=== PATIENT | female | born 1955 | race African-American/Black ===

== ENCOUNTER → 2016-05-09 | Day surgery (SDC) | payer OTHER ==
[~2016-05-09] MED LIST: ALLEGRA ALLERG180 MG PO; ALLER-FEX180 MG PO; ANTIVERT PO; ASPIRIN81 M2 PO; CITALOPRAM HBR40 MG PO; COLACE PO; DITROPAN XL PO; DITROPAN5 MG PO; DOC-Q-LACE100 MG PO; FLEXERIL10 MG PO; GABAPENTIN300 MG PO; HYDROCHLOROTHIA25 MG PO; HYDROCODON-ACE1 EAC7 PO; HYDROXYZINE HCL25 M1 PO; HYDROXYZINE PAM25 M1 PO; KCL PO; LIPITOR20 MG PO; LISINOPRIL PO; MELOXICAM15 MG PO; METFORMIN PO; MOBIC PO; MOTION SICKNESS25 M4 PO; PATIENT'S PHARMACY; POTASSIUM CHLO10 MEQ PO; PROTONIX PO; SUMATRIPTAN SUC50 M1 PO; TRADJENTA5 MG PO; TRAZODONE HCL150 MG PO; VERAPAMIL ER180 M1 PO; VERAPAMIL ER180 MG PO; ZESTRIL40 MG PO
--- NOTE | ~2016-05-09 | OR ---
Unit #: [id number] #: [id number] Patient: PADMINI ROCHE [id number] [address] [address] [id number] O MR#: [id number] NAME: PADMINI ROCHE ROOM: Date of Procedure: 05/09/2016 Admission Date: 05/09/2016 Surgeon: Donald Faust M.D. : 1955 Attending Physician: Donald Faust M.D. Primary Care Physician: Isabell Wong OPERATIVE REPORT INDICATIONS FOR PROCEDURE Esophagogastroduodenoscopy to descending duodenum and colonoscopy to cecum. INDICATIONS FOR PROCEDURE The patient with significant dysphagia, blood in the stool, altered bowel movements, undergoing evaluation with upper endoscopy and colonoscopy. MEDICATIONS Monitored anesthesia. POSTOPERATIVE FINDINGS 1. Small hiatal hernia. Normal stomach and normal duodenum and distal duodenum. 2. Colonoscopy was completed to cecum. No polyps, masses, or colitis. Prep was good. PLAN Symptomatic treatment. Repeat colonoscopy in 10 years. DESCRIPTION OF PROCEDURE The patient was explained of the procedure, risks, and benefits along with the risks and benefits of anesthesia. She was brought to the endoscopy room. Propofol anesthesia was given. Bite block was placed. The scope was passed down the mouth into the esophagus, duodenum, and distal duodenum. Findings as described. Biopsies taken. Gently, the scope was pulled out. She tolerated it well. At this time, she was turned around and repositioned for colonoscopy. Rectal exam was done, which was normal. Colonoscope was lubricated, passed up the rectum, advanced under direct vision all the way to the cecum. Cecum was identified by ileocecal valve and appendiceal orifice. No polyps, masses, or colitis was seen. Mucosa was normal and healthy. I retroflexed in the rectum, small hemorrhoids seen. Scope was gently pulled out. She tolerated it well. No major complications were seen. Dictated by... Ghada Walden/tonia TD: 05/10/2016 00:57 JOB #: [id number] Unit #: [id number] #: [id number] Patient: PADMINI ROCHE OPERATIVE REPORT X Donald Faust MD PROCEDURE OPERATIVE NOTE
== END | disposition home or self-care (01) ==
LOC: COPS 08:58
DX: K44.9 Diaphragmatic hernia without obstruction or gangrene (principal); R13.10 Dysphagia, unspecified; K92.1 Melena; K64.9 Unspecified hemorrhoids; I10 Essential (primary) hypertension; E11.9 Type 2 diabetes mellitus without complications; M19.90 Unspecified osteoarthritis, unspecified site; Z88.0 Allergy status to penicillin; Z88.2 Allergy status to sulfonamides; Z88.8 Allergy status to other drugs, medicaments and biological substances; Z91.040 Latex allergy status; Z79.891 Long term (current) use of opiate analgesic; Z90.710 Acquired absence of both cervix and uterus; Z98.51 Tubal ligation status
CPT/HCPCS: 82947

== ENCOUNTER 2016-09-24 09:24 | Observation (INO) | payer OTHER ==
[~2016-09-24] VITALS: Ht 160 cm; Wt 108.0 kg
--- NOTE | ~2016-09-24 | MR122 ---
[facility] A Service of [facility] RADIOLOGY TEXT RESULTS PATIENT: PADMINI ROCHE LOCATION: [place] [address] : [birth year] UNIT #: [id number] AGE: [address]: Kwesi Bey MD SEX: F ORDER DR: [id number] [facility] [address] [place], [place] [address] [id number] I MR#: [id number] Acc #: [id number] NAME: PADMINI ROCHE : 1955 SEX: F STUDY DATE/TIME: 09/25/2016 18:45 UNIT: [facility] ROOM: [facility] STUDY DESCRIPTION: MR MRA Head Wo Contrast Attending Physician: Kwesi Bey M.D. Ordering Physician: Stephanie Merino A.P.R.N. Primary Care Physician: Isabell Wong MRI CENTER REPORT This report is preliminary unless electronic signature is present. EXAM MRA brain. HISTORY Right arm numbness today. FINDINGS MR angiogram of the brain was performed without contrast demonstrating no major intracranial arterial occlusion or high-grade stenosis. The intracranial internal carotid arteries and intracranial vertebral arteries and the basilar artery are patent, and the anterior cerebral, middle cerebral and posterior cerebral arteries are patent with no focal stenosis identified. origin of the posterior cerebral arteries is incidentally noted. No aneurysm or vascular malformation is identified. IMPRESSION Unremarkable intracranial MR angiogram. No major vessel occlusion or high-grade stenosis. Dictated by... Dirk Scanlon M.D. THIS IS AN ELECTRONICALLY VERIFIED REPORT Dirk Scanlon M.D. at 09/26/2016 10:10 PM DFL/psc TD: 09/26/2016 00:36 JOB #: [id number] MRI CENTER REPORT Page 1 of 1 COPY
--- NOTE | ~2016-09-24 | EKG ---
PATIENT: PADMINI ROCHE UNIT #: [id number] Ventricular Rate: 79 BPM Atrial Rate: 79 BPM P-R Interval: 172 ms QRS Duration: 72 ms Q-T Interval: 354 ms QTC Calculation(Bezet): 405 ms P [place]: 49 degrees Calculated R [place]: 2 degrees Calculated T [place]: 61 degrees Diagnosis Line: Normal sinus rhythm Diagnosis Line: Possible Left atrial enlargement Diagnosis Line: Borderline ECG Diagnosis Line: No previous ECGs available Diagnosis Line: Confirmed by JOHN STROUD MD ([id number]) on 09/24/2016 Diagnosis Line: 7:44:38 PM INTERPRETING MD: MAXIMUS HERNANDEZ
--- NOTE | ~2016-09-24 | MR134 ---
[facility] A Service of [facility] RADIOLOGY TEXT RESULTS PATIENT: PADMINI ROCHE LOCATION: [place] [address] : 55 UNIT #: [id number] AGE: [address]: Kwesi Bey MD SEX: F ORDER DR: [id number] [facility] [address] [facility] [place], [place] [address] [id number] I MR#: [id number] Acc #: [id number] NAME: PADMINI ROCHE : 1955 SEX: F STUDY DATE/TIME: 09/25/2016 18:45 UNIT: [facility] ROOM: [facility] STUDY DESCRIPTION: MR MRA Neck Wo Contrast Attending Physician: Kwesi Bey M.D. Ordering Physician: Stephanie Merino A.P.R.N. Primary Care Physician: Isabell Wong [facility] REPORT This report is preliminary unless electronic signature is present. EXAM MR angiogram neck without contrast HISTORY Right arm numbness today. FINDINGS MR angiogram of the neck was performed without contrast. The origins of the common carotid arteries are not well seen due to motion. The remainder of the common carotid arteries are patent with no definite stenosis identified although motion artifact limits sensitivity in evaluating the proximal common carotid arteries. Approximately 30% stenosis at the origin of the right internal carotid artery, by NASCET criteria. No stenosis is identified in the right internal carotid artery. The external carotid arteries are patent bilaterally and the vertebral arteries are patent with no focal stenosis identified. IMPRESSION 1. Approximately 30% stenosis at the origin of the left internal carotid artery by NASCET criteria. 2. No stenosis is identified in the right internal carotid artery. 3. Both vertebral arteries are patent. 4. Limited evaluation of the origins of the common carotid arteries and vertebral arteries due to motion. Dictated by... Dirk Scanlon M.D. THIS IS AN ELECTRONICALLY VERIFIED REPORT Dirk Scanlon M.D. at 09/26/2016 10:10 PM [facility] A Service [facility] RADIOLOGY TEXT RESULTS PATIENT: PADMINI ROCHE LOCATION: [facility] [id number] : 55 UNIT #: [id number] AGE: [address]: Kwesi Bey MD SEX: F ORDER DR: COLLEEN/audra TD: 09/26/2016 00:34 JOB #: [id number] MRI CENTER REPORT Page 1 of 1 COPY
--- NOTE | ~2016-09-24 | US84 ---
[id number] [facility]. [facility] [address]. [place], [place] [address] [id number] I MR#: [id number] Acc #: [id number] NAME: PADMINI ROCHE : 1955 SEX: F STUDY DATE/TIME: 09/24/2016 17:56 UNIT: C5B ROOM: 552 STUDY DESCRIPTION: US LE Veins Complete Jose Stdy Attending Physician: Kwesi Bey M.D. Ordering Physician: Kwesi Bey M.D. Primary Care Physician: Isabell Wong MEDICAL IMAGING REPORT This report is preliminary unless electronic signature is present EXAM Bilateral lower extremity venous Doppler 09/24/2016 HISTORY Bilateral leg swelling and pain worsening over 1 week with leg discoloration bilaterally. TECHNIQUE Venous ultrasound examination of both lower extremities was performed using grayscale, spectral Doppler and color flow Doppler imaging. FINDINGS The examination is negative. There is no evidence of deep venous thrombus from the groin to the lower calf bilaterally. Visualized greater saphenous veins are also patent. IMPRESSION Normal negative examination. No evidence of lower extremity deep venous thrombosis. Dictated by... Dandre Waggoner M.D. THIS IS AN ELECTRONICALLY VERIFIED REPORT Dandre Waggoner M.D. at 09/25/2016 11:50 AM TEV/to TD: 09/24/2016 18:50 JOB #: [id number] MEDICAL IMAGING REPORT Page 1 of 1 COPY
--- NOTE | ~2016-09-24 | CR72 ---
[facility] A Service of [facility] RADIOLOGY TEXT RESULTS PATIENT: PADMINI ROCHE LOCATION: [place] [address] : [birth year] UNIT #: [id number] AGE: [address]: Kwesi Bey MD SEX: F ORDER DR: [id number] [facility] [address]. [place], [place] [address] [id number] E MR#: [id number] Acc #: [id number] NAME: PADMINI ROCHE : 1955 SEX: F STUDY DATE/TIME: 09/24/2016 10:08 UNIT: [facility] ROOM: STUDY DESCRIPTION: CR Chest Single View Portable Attending Physician: Selvin Means M.D. Ordering Physician: Selvin Means M.D. Primary Care Physician: Isabell Wong MEDICAL IMAGING REPORT This report is preliminary unless electronic signature is present EXAM Portable chest. INDICATIONS Minus chest pain and weakness today. COMPARISON No comparisons. FINDINGS Lungs are well expanded. No acute infiltrate. Heart size normal. IMPRESSION No active disease. Dictated by... Josemanuel Willis M.D. THIS IS AN ELECTRONICALLY VERIFIED REPORT Josemanuel Willis M.D. at 09/26/2016 8:00 AM Arturo TD: 09/24/2016 11:51 JOB #: [id number] MEDICAL IMAGING REPORT Page 1 of 1 COPY
--- NOTE | ~2016-09-24 | CO ---
Unit #: [id number] #: [id number] Patient: PADMINI ROCHE [id number] [facility] [address]. [place], [place] [address] [id number] I MR#: [id number] NAME: PADMINI ROCHE. ROOM: 552 Age: 60 Sex: F Admission Date: 09/24/2016 : 1955 Attending Physician: Kwesi Bey M.D. Primary Care Physician: Isabell Wong Consultation Date: 09/25/2016 CONSULTATION REPORT REASON FOR CONSULT Weakness. PATIENT IDENTIFICATION This is a 60-year-old, right-handed, female evaluated in room [address] [facility] SOURCE OF INFORMATION Obtained from the patient, as well as the medical record. HISTORY OF PRESENT ILLNESS This is a 60-year-old, right-handed, female with a past medical history of hypertension, migraines, hyperlipidemia and diabetes mellitus type [address] [facility] with complaints of chest pain. She apparently came to the emergency room because of chest pain, was scheduled to have an ultrasound of the bilateral lower extremities because of "purple legs." Apparently while she was on the elevator to go for her appointment, she developed dizziness. She got to the radiology counter and suddenly had an episode of chest pressure, weakness, shortness of breath and dizziness. She was put into a chair. She started to feel better. She apparently had hyperventilated because she got very nervous about what was going on. She tells me that she got scared and hyperventilated but that her symptoms got better. She states that she had had another event in the past few days with similar symptoms. She was brought back to the emergency room for further evaluation. Her troponin was negative. EKG showed no acute ischemic changes. She had an elevated D-dimer, but CT angiogram of the chest was indeterminate. She was evaluated by cardiology who admitted her for evaluation of chest pain that was felt to be likely noncardiac in origin, and she was scheduled for a Cardiolite stress test for this morning. She was down for her Cardiolite stress test this morning when she began to have another episode similar to what she had on the day of admission. She reports that she became weak all over. She was unable to lift her arms or legs. She states that she was too weak to talk; however, she tells me that she could get her words out but that she felt very weak and fatigued. She states at one point she could not even lift her head off the bed and that she could only move her eyes. She denies loss of consciousness or loss of awareness. She denies any change in her vision, any double vision, blurred vision or loss of vision. Unit #: [id number] #: [id number] Patient: PADMINI ROCHE She does report that she had sensitivity to the light in the room. She denies any headache. She states that she slowly started to feel better; however, when I saw her, she states that she was still weak. When I went to evaluate her, she gave a very poor effort; however, when she was being transferred to the stretcher, she was able to lift her arms independently and spontaneously without difficulty. Over the course of my evaluation, she states that she started to feel better and could move all of her extremities. She states that she feels mostly back to her baseline but still feels fatigued. She denies any pain but admits to chest pressure. She denies any exacerbating or alleviating factors. She was evaluated very quickly in the stress lab and was noted to have stable vital signs. She was not diaphoretic. She had no evidence of hypoglycemia or profound hyperglycemia, and she had no abnormal cranial nerve findings seen on exam, and speech was intact. She does complain of dizziness with yesterday's episode, and she reports that she had a similar event on Thursday where she felt weak, as well. She denies experiencing these episodes prior to Thursday. She denies any focal weakness or paresthesia, focal facial weakness, vertigo, loss of speech or abnormal speech or slurred speech. She denies any nausea, vomiting or abdominal pain, loss of consciousness or loss of awareness, headache, fever, chills or any change in weight or routine. She states, "Something is wrong with me, and I need to find out what it is." Apparently she did complain of some blurred vision with yesterday's event on admission. She denies blurred vision with today's event. Apparently she had persistent dizziness for about an hour yesterday in the ER after the event. Yesterday this occurred while she was standing. I believe she was sitting with today's episode. PAST MEDICAL HISTORY 1. Hypertension. 2. Cardiac catheterization in 2003 at [facility] with no details available. 3. Stress test in 2012 at [facility]. No details available. 4. Hyperlipidemia. 5. Diabetes mellitus type 2. 6. Obesity. 7. Migraines. 8. Apparently a report of seizure disorder secondary to migraines. Details are not clear. The patient denies having a history of actual seizure disorder but reports that she has seizure-like events related to her migraines. She does not appear to be on any seizure medication. She is on gabapentin at night for "nerve pain." 9. Osteoarthritis. 10. Nonsmoker. 11. Hysterectomy. 12. Tubal ligation. 13. Back surgery in April of 2016. FAMILY HISTORY Positive for coronary artery disease and stroke. She has a sister who had a stroke and has a younger brother who from a stroke. SOCIAL HISTORY Patient lives with her mother. She just recently had back surgery in Unit #: [id number] #: [id number] Patient: PADMINI ROCHE April of 2016 and does not live an active lifestyle at this time with that affecting her. She denies any history of tobacco use ever. She reports occasional alcohol use on holidays and birthdays. She denies illicit drug use. ALLERGIES Penicillin, sulfa, Demerol, Lasix. HOME MEDICATIONS (as per med/rec) 1. Hydroxyzine. 2. Lipitor. 3. Zestril. 4. Meclizine. 5. Aspirin. 6. Docusate sodium. 7. Fexofenadine. 8. Hydrochlorothiazide. 9. Glucophage. 10. Ditropan XL. 11. Protonix. 12. Potassium chloride. 13. Tradjenta. 14. Verapamil ER. 15. Mobic. 16. Gabapentin. She takes 300 mg at bedtime as needed for nerve pain. 17. Flexeril. 18. Trazodone. 19. Celexa. REVIEW OF SYSTEMS A 14-point review of systems was done. Pertinent positives are as discussed above; otherwise, negative. PHYSICAL EXAMINATION VITAL SIGNS: Temperature 98.4, pulse 83, respirations 20, blood pressure 180/91, oxygen saturation 95%. Height is 5'3", weight 238 pounds, BMI 42. NEUROLOGIC EXAMINATION MENTAL STATUS: The patient is awake, alert and oriented to person, place and time, as well as events. No right/left confusion. No finger agnosia. No aphasia, dysarthria or apraxia. CRANIAL NERVE EXAM: She demonstrates full nascimento of vision. Eyes are conjugate without ptosis or nystagmus. Extraocular movements are intact. Sensation of the face and scalp is intact. Strength of muscles of facial expression is intact. Hearing is intact to finger rub and conversation. Tongue is midline. Unable to fully visualize uvula and palate. Head turning and shoulder shrug are unremarkable. Neck is supple. MOTOR EXAM: She initially on exam reports she is unable to lift her arms very well against gravity. She becomes very tremulous, but with encouragement, she is able to lift her arms fully. When she was moving from the exam table to the stretcher, she was able to lift her arm without difficulty spontaneously and against gravity. Toward the end of the evaluation, she had full strength of her upper extremities. She reports trouble using her lower extremities, as well, but gives a poor effort on exam. She improves with her legs throughout interview, as well, to full strength with no focal findings. SENSORY EXAM: Intact to soft touch and pinprick sensation. GAIT: Deferred. Unit #: [id number] #: [id number] Patient: PADMINI ROCHE ROMBERG: Deferred. REFLEXES: Unable to elicit. Toes are equivocal. COORDINATION: Unremarkable. She has no ataxia appreciated on exam. DIAGNOSTIC STUDIES LABS: TSH 2.52. Cholesterol 143, triglycerides 60, LDL 86, HDL 45. Magnesium 1.5. Troponins have been negative, as well as repeat troponins. CK 48. BMP unremarkable other than a glucose of 171, alkaline phosphatase 106, magnesium 1.5. Her white blood cell count is 10.4, hemoglobin 11.2, hematocrit 33.4, platelet count 346. Other labs done are as stated or as per chart and have been reviewed at length. IMPRESSION 1. Episode of generalized weakness x3 in the past few days. No focal stroke symptoms or signs seen on exam at this time. Reports of dizziness and inability to move body. 2. Chest pain. 3. Hypertension. 4. Hyperlipidemia. 5. Anxiety. 6. Recent back surgery. 7. Obesity. 8. History of migraines. 9. Diabetes mellitus type 2. PLAN Patient's symptoms have resolved. She is visibly upset but able to be calmed. Doubtful at this time that episode appears to be neurological in origin. I discussed with Dr. Aguilar, and at this time doubtful basilar etiology given her current events with no vision change and full resolution of symptoms. The patient is able to move spontaneously. Her speech is intact. However, the patient reports complete paralysis prior to my evaluation; therefore, we will request MRI of the brain and MRA of the head and neck to rule out any vertebrobasilar insufficiency or any other neurologic etiology given her reports of dizziness and weakness with recurrent episodes. The patient is very upset and concerned that something is wrong with her. She states that something is very wrong. We will evaluate her with an MRI of the brain, MRA of the head and neck and hold contrast, as the patient has received contrast this morning for her testing and also had a CT of the chest PE protocol yesterday. If MRI imaging is unremarkable, recommend further outpatient evaluation neurologically. We will follow up on MRI imaging later today. Case was discussed with Dr. Aguilar. He agrees with the above assessment, plan and recommendations. Please call for any questions or issues. We thank you very much for allowing us to assist in the care of this patient. Dictated by... Karen OmalleyPChiqui for Ghada Carlos/matheus TD: 09/26/2016 08:45 JOB #: [id number] Unit #: [id number] #: [id number] Patient: PADMINI ROCHE CONSULTATION REPORT Page 1 of 1 X Stephanie Merino APRN X CONSULTATION REPORT
--- NOTE | ~2016-09-24 | CT16 ---
[facility] A Service of [facility] RADIOLOGY TEXT RESULTS PATIENT: PADMINI ROCHE LOCATION: [facility] : 55 UNIT #: [id number] AGE: [address]: Selvin Means MD SEX: F ORDER DR: [id number] [facility] [address] [place], [place] [address] [id number] E MR#: [id number] Acc #: [id number] NAME: PADMINI ROCHE : 1955 SEX: F STUDY DATE/TIME: 09/24/2016 11:50 UNIT: [facility] ROOM: STUDY DESCRIPTION: CT Angio Chest for PE Attending Physician: Selvin Means M.D. Ordering Physician: Selvin Means M.D. Primary Care Physician: Isabell Mathew [facility] IMAGING REPORT This report is preliminary unless electronic signature is present EXAM CT angiogram of the chest for pulmonary embolism, 09/24/2016 at 11:50 hours HISTORY 60-year-old woman complaining of chest pain, pressure and dyspnea today with elevated D-dimer at 858. Evaluate for pulmonary embolism. COMPARISON None TECHNIQUE Dynamic helical CT images were obtained from the lung apices through the adrenal glands with contrast. 3-D sagittal and coronal reconstructions were performed. Timing of the contrast was nondiagnostic and the series was repeated with similar technique. Patient received a total of 200 mL of Isovue-370 IV. Total exam DLP is 2075 mGy-cm. This CT exam was performed with one or more of the following radiation dose reduction techniques: automatic exposure control, adjustment of mA and/or kV according to patient size, and iterative reconstruction. FINDINGS Images through the thoracic inlet are normal. The first series demonstrates diagnostic quality opacification of the aorta measuring up to 3.4 cm without dissection. Opacification of the pulmonary arteries was suboptimal. There is no adenopathy. The repeat series demonstrates diagnostic quality opacification of the pulmonary arteries however the patient is moving. No pulmonary emboli are visualized. The lungs demonstrate mild basilar vascular crowding and minimal atelectasis. There is no definite pneumonia, edema or pleural effusion. [facility] A Service of [facility] & [facility] RADIOLOGY TEXT RESULTS PATIENT: PADMINI ROCHE LOCATION: [facility] : 55 UNIT #: [id number] AGE: [address]: Selvin Means MD SEX: F ORDER DR: There is no pneumothorax. Bone window images demonstrate multilevel thoracic osteophytes. There is no fracture or kyphosis. No rib lesion seen. IMPRESSION 1. Technically limited exam. The initial series demonstrates nondiagnostic timing of the contrast bolus. The repeat series demonstrated better opacification of the pulmonary arteries however the patient had respiratory motion artifact on this portion of the exam. No filling defects are seen. 2. Minimal ectasia of the aorta without dissection. 3. No acute pulmonary density. No pleural effusion or pneumothorax. Dictated by... Makenna Mcclellan M.D. THIS IS AN ELECTRONICALLY VERIFIED REPORT Makenna Mcclellan M.D. at 09/24/2016 2:35 PM Cameron TD: 09/24/2016 14:06 JOB #: [id number] MEDICAL IMAGING REPORT Page 1 of 1 COPY
--- NOTE | ~2016-09-24 | DS ---
Unit #: [id number] #: [id number] Patient: PADMINI ROCHE [id number] [address] [address] [id number] I MR#: [id number] NAME: PADMINI ROCHE. ROOM: [facility] Age: 60 Sex: F Admission Date: 09/24/2016 : 1955 Discharge Date: 09/26/2016 Attending Physician: Kwesi Bey M.D. Primary Care Physician: Isabell Wong DISCHARGE SUMMARY DISCHARGE DIAGNOSES 1. Chest pain, ruled out for an acte myocardial infarction. 2. Status post Lexiscan Cardiolite stress test 09/25/2016, which shows no stress induced ischemia or focal wall abnormality. Ejection fraction 71%. 3. Dizziness. 4. Hypertension. 5. Hyperlipidemia. 6. Anxiety. 7. Obesity. 8. Diabetes mellitus type 2. DISCHARGE MEDICATIONS 1. Gabapentin 300 mg at nighttime. 2. Celexa 40 mg daily. 3. Trazodone 150 mg at nighttime. 4. Glucophage 1000 mg b.i.d. 5. Meclizine 25 mg t.i.d. 6. Fexofenadine 180 mg daily. 7. Hydroxyzine 25 mg t.i.d. p.r.n. 8. Verapamil 180 mg b.i.d. 9. Docusate sodium 100 mg b.i.d. 10. Tradjenta 5 mg daily. 11. Hydrochlorothiazide 25 mg daily. 12. Ditropan 5 mg t.i.d. 13. Lipitor 20 mg daily. 14. Lisinopril 40 mg daily. 15. Aspirin 81 mg daily. 16. Mobic 15 mg daily p.r.n. 17. Protonix 40 mg daily. 18. Potassium chloride 10 mEq daily. 19. Flexobenzoprine 10 mg t.i.d. p.r.n. HOSPITAL COURSE This is a 60-year-old white female who presented to the emergency room with a complaint of chest pressure. She was scheduled to have an ultrasound on her bilateral extremities, which was done this admission and was negative for deep vein thrombosis. She was ruled out for an acute myocardial infarction with negative cardiac enzymes and troponin. She underwent Lexiscan Cardiolite stress test which was normal, where there was no ischemia. She had normal left ventricular systolic function. Lipid levels were obtained, which were within normal limits. On the day of discharge the patient had an episode of dizziness and feeling as if she could not move her arms or legs. Neurology was called to see the patient Unit #: [id number] #: [id number] Patient: PADMINI ROCHE and MRI of the brain with MRI of the head and neck was obtained. 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 Her heart rate and blood pressure remained stable. Dr. Bey saw the patient on the day of discharge and felt the patient's symptoms were related to anxiety. There was no evidence of any cardiac problems noted throughout her stay. She is stable for discharge today. PHYSICAL EXAMINATION VITALS: Blood pressure 133/58, heart rate 77, temperature 98.5. CHEST: Clear to auscultation. HEART: S1 and S2 with regular rate and rhythm. ABDOMEN: Soft with bowel sounds present. EXTREMITIES: Without leg edema. DIAGNOSTIC DATA LABORATORY: Cholesterol 143, triglycerides 60, LDL 86, HDL 45. IMAGING: Ultrasound of the bilateral lower extremities was negative for deep vein thrombosis. MRI of the brain shows no acute findings. MRI of the neck shows approximately 30% stenosis in the origin of the left internal carotid artery. Both vertebral arteries are patent. MRI of the head shows no findings. DISCHARGE INSTRUCTIONS 1. The patient will be discharged home today. 2. Follow up with her primary care physician next week. 3. The patient is to continue on her medications as previously prescribed. Dictated by... Puma Matute A.P.R.N. for Ghada Rodriguez TD: 09/29/2016 09:28 JOB #: [id number] CC: [facility] DISCHARGE SUMMARY Page 1 of 1 X Puma Matute APRN DISCHARGE SUMMARY
--- NOTE | ~2016-09-24 | TH ---
Unit #: [id number] #: [id number] Patient: PADMINI ROCHE [id number] [facility]. [address] [address] [id number] I MR#: [id number] NAME: PADMINI ROCHE : 1955 SEX: F STUDY DATE/TIME: 09/25/2016 UNIT: C5B ROOM: 552 STUDY DESCRIPTION: Attending Physician: Kwesi Bey M.D. Primary Care Physician: Isabell Wong CARDIOLOGY REPORT EXAM Lexiscan Cardiolite stress test, nuclear portion. PROCEDURE Using technetium 99m labeled Cardiolite, rest and stress SPECT images were obtained. Multiple SPECT images were obtained in various views including horizontal and vertical long axis and short axis views of the left ventricle. Images were obtained by gated SPECT method. The patient was administered 10.27 mCi of Cardiolite at rest. The patient was administered 32.6 mCi of Cardiolite after Lexiscan infusion was completed. On the stress images, there is normal perfusion noted. The rest images show normal perfusion. Comparing rest and stress images, there is no stress-induced ischemia noted. The left ventricular ejection fraction is calculated to be 71%. There is no focal wall motion abnormality seen. CONCLUSION 1. No stress-induced ischemia noted. 2. The left ventricular ejection fraction is calculated to be 71%. 3. There is no focal wall motion abnormality seen. 4. Normal nuclear portion of the stress test. 5. Clinical correlation is requested. Dictated by... Ghada Sparks TD: 09/25/2016 15:06 JOB #: [id number] CARDIOLOGY REPORT Page 1 of 1 X Ning Parker MD <ELECTRONICALLY SIGNED> 11/13/16 1524 CARDIOLOGY REPORT
--- NOTE | ~2016-09-24 | BMI ---
[facility] Nutrition Therapy DATE: 09/25/16 Patient: PADMINI ROCHE Physician: FARIDEH Address: [address] [place] [address] Room/Bed: [address] [place] [address], Zip: [place] [address] Admit Date: 09/24/16 Date of : 55 Height: 5 3 Weight: 238 108 HIGH BMI NOTE: DX: 60 Y.O. FEMALE ADMITTED FOR CHEST PRESSURE ANTHROPOMETRICS: 5'3", WT: 230# (104.5 KG), BMI: 40.7 DIET: CC+HH RECOMMENDATIONS: 1. RECOMMEND TO CONTINUE CURRENT DIET ORDER ABOVE TO PROMOTE GRADUAL WEIGHT LOSS TOWARDS HEALTHY BMI (19.0-25.0) OR +/-10%IBW RD WILL F/U PER PROTOCOL Respectfully, BRIANNA SPRINGER MS, RD, LD Food and Nutritional Services [facility] cc: client file
--- NOTE | ~2016-09-24 | MR18 ---
[facility] A Service of [facility] & [facility] RADIOLOGY TEXT RESULTS PATIENT: PADMINI ROCHE LOCATION: [facility] 55- : 55 UNIT #: [id number] AGE: [address]: Kwesi Bey MD SEX: F ORDER DR: [id number] [facility] [address] [place], [place] [address] [id number] I MR#: [id number] Acc #: [id number] NAME: PADMINI ROCHE : 1955 SEX: F STUDY DATE/TIME: 09/25/2016 18:45 UNIT: [facility] ROOM: [facility] STUDY DESCRIPTION: MR Brain Wo Contrast Attending Physician: Kwesi Bey M.D. Ordering Physician: Stephanie Merino A.P.R.N. Primary Care Physician: Isabell Wong MRI CENTER REPORT This report is preliminary unless electronic signature is present. EXAM MRI brain without contrast HISTORY Right arm numbness today. FINDINGS MRI brain was performed without contrast. There is no recent ischemia or infarct. Minimal probable chronic ischemic changes in the periventricular and subcortical white matter bilaterally. No intracranial mass or edema. No midline shift or ventricular dilatation, focal atrophy or extraaxial fluid collection. Empty sella. IMPRESSION 1. No acute findings. No recent ischemia or infarct. 2. Minimal probable chronic ischemic changes in the deep white matter and subcortical white matter bilaterally. Dictated by... Dirk Scanlon M.D. THIS IS AN ELECTRONICALLY VERIFIED REPORT Dirk Scanlon M.D. at 09/26/2016 10:10 PM COLLEEN/audra TD: 09/26/2016 00:25 JOB #: [id number] MRI CENTER REPORT Page 1 of 1 COPY
--- NOTE | ~2016-09-24 | EKG ---
PATIENT: PADMINI ROCHE UNIT #: [id number] Ventricular Rate: 74 BPM Atrial Rate: 74 BPM P-R Interval: 180 ms QRS Duration: 78 ms Q-T Interval: 378 ms QTC Calculation(Bezet): 419 ms P Padroni: 72 degrees Calculated R Padroni: -24 degrees Calculated T Padroni: 25 degrees Diagnosis Line: Normal sinus rhythm Diagnosis Line: Cannot rule out Right ventricular hypertrophy Diagnosis Line: Abnormal ECG Diagnosis Line: When compared with ECG of 24-SEP-2016 09:29, Diagnosis Line: Borderline criteria for Lateral infarct are now Diagnosis Line: Present Diagnosis Line: Confirmed by JOHN STROUD MD ([id number]) on 09/27/2016 Diagnosis Line: 8:10:42 AM INTERPRETING MD: MAXIMUS HERNANDEZ
--- NOTE | ~2016-09-24 | HP ---
Unit #: [id number] #: [id number] Patient: PADMINI ROCHE [id number] [address] [address] [id number] E MR#: [id number] NAME: PADMINI ROCHE ROOM: Age: 60 Sex: F Admission Date: 09/24/2016 : 1955 Attending Physician: Selvin Means M.D. Primary Care Physician: Isabell Wong HISTORY AND PHYSICAL HISTORY OF PRESENT ILLNESS This is a 60-year-old female who came to the emergency room because of chest pain. She was scheduled to have ultrasound of the bilateral lower extremities because of "purple legs." While on the elevator she developed dizziness. By the time she got to the radiology counter she had substernal chest pressure that radiated across her entire chest and across her back. She had associated shortness of breath and weakness. She was brought to the emergency room for evaluation. In the emergency room her troponin was negative. Electrocardiogram showed no acute ischemic changes. She had elevated d-dimer, but CTA of the chest was indeterminate. From a cardiac standpoint the patient gives a history of cardiac catheterization at [facility] in 2003. She had a stress test also at [facility] in 2012. No results are available. She is known to have hypertension, hyperlipidemia, diabetes and obesity as risk factors for ischemia heart disease. Upon further questioning, the patient states that she had an episode on Thursday where she drove to the store at about 12 noon. While walking in the parking lot she had to sit down because she became so dizzy. She had blurred vision. She sat down for an hour, but the dizziness persisted. She has no other incidents of chest pain. PAST MEDICAL HISTORY 1. Cardiac catheterization in 2003 at [facility]. No details available. 2. Stress test in 2012 at [facility]. Ho details. 3. Hypertension. 4. Hyperlipidemia. 5. Diabetes mellitus type 2. 6. Obesity. 7. Migraine headache. 8. Seizure disorder secondary to migraines. 9. Osteoarthritis. 10. Nonsmoker. PAST SURGICAL HISTORY 1. Hysterectomy. 2. Tubal ligation. 3. Recent back surgery in 04/2016. SOCIAL HISTORY The patient lives with her mother. She is unemployed. Activity is limited because of recent back surgery. She is able to walk less than a half mile, but complains of shortness of breath. There is no history of alcohol, tobacco or illicit drug use. Unit #: [id number] #: [id number] Patient: PADMINI ROCHE FAMILY HISTORY Father from heart disease. Mother is currently living and well. She has a sister who has had a stroke. She had a younger brother who from a stroke. ALLERGIES Penicillin, sulfa, Demerol and Lasix. HOME MEDICATIONS 1. Hydroxyzine 25 mg t.i.d. p.r.n. 2. Lipitor 20 mg at nighttime. 3. Lisinopril 40 mg daily. 4. Meclizine 25 mg t.i.d. 5. Aspirin 81 mg daily. 6. Docusate sodium 100 mg b.i.d. 7. Fexofenadine 180 mg daily. 8. Hydrochlorothiazide 25 mg daily. 9. Metformin 1000 mg b.i.d. 10. Ditropan 5 mg t.i.d. 11. Protonix 40 mg daily. 12. Potassium chloride 10 mEq daily. 13. Tradjenta 5 mg daily. 14. Verapamil 180 mg b.i.d. 15. Mobic 15 mg daily p.r.n. REVIEW OF SYSTEMS CONSTITUTIONAL: Positive for weakness and fatigue. Has no weight gain or weight loss. HEENT: No headache or vision changes. No difficulty with swallowing. Positive for dizziness. CARDIOVASCULAR: Has chest pressure as described in the history of present illness. Denies palpitations. No paroxysmal nocturnal dyspnea or orthopnea. No syncope or near syncope. RESPIRATORY: Has dyspnea that accompanies chest pain. Reports dyspnea on exertion. No cough or hemoptysis. GASTROINTESTINAL: Negative for abdominal pain, nausea or vomiting. No constipation melena or hematochezia. EXTREMITIES: Reports occasional lower extremity edema. Noted that she has discoloration with purple in her lower extremities, especially the left lower extremity. PHYSICAL EXAMINATION GENERAL: This is an obese 60-year-old female who is in no acute respiratory distress. VITALS: Blood pressure 171/96, heart rate 68, temperature 98.1, BMI 40. NECK: Trachea is midline. No thyromegaly or lymphadenopathy. No jugular venous distension. LUNGS: Clear without rales, rhonchi or wheezes. HEART: S1 and S2. Heart sounds are normal. No murmurs, rubs or clicks. Regular rate and rhythm. ABDOMEN: Soft, obese, with bowel sounds present. EXTREMITIES: Palpable pedal pulses. No leg edema. SKIN: Warm and dry. NEUROLOGIC: She is awake, alert and oriented. There is no focal weakness. DIAGNOSTIC STUDIES Unit #: [id number] #: [id number] Patient: PADMINI ROCHE IMAGING: Chest x-ray shows no active disease. CT of the chest shows limited exam. Nondiagnostic timing of contrast bolus. No pulmonary density or pleural effusions. LABORATORY: Glucose 171. BUN 19, creatinine 1.0, sodium 137, potassium 3.6, magnesium 1.5, d-dimer 858, troponin less than 0.05 times 2. White blood cell count 10.4, hemoglobin 11.2, hematocrit 33.4, platelets 346. CARDIOVASCULAR: Electrocardiogram normal sinus rhythm with a rate of 79 beats per minute with questionable old inferior infarct, with Q waves noted in 3 and AVF. There is poor R wave progression and left axis deviation. ASSESSMENT 1. Chest pain, probable noncardiac in origin. 2. Hypomagnesemia. 3. Obesity. 4. Anxiety. 5. Essential hypertension. 6. Hyperlipidemia. 7. Diabetes mellitus type 2. PLAN 1. The patient has multiple risk factors for ischemia heart disease. Will repeat troponin and electrocardiogram to rule out an acute myocardial infarction. 2. If troponin is negative, will proceed with Lexiscan Cardiolite stress test in the a.m. 3. D-dimer elevated. CTA of the chest nondiagnostic. Will check ultrasound of the bilateral lower extremities to rule out deep vein thrombosis. 4. Start the patient on Lovenox in addition to aspirin. 5. Lipid profile and TSH will be obtained. 6. Will add nitrates. 7. If stress test is normal, the patient will be discharged home in the a.m. Dictated by Puma Matute A.P.R.N. for Ghada Rodriguez TD: 09/24/2016 16:08 JOB #: [id number] CC: [facility] Unit #: [id number] #: [id number] Patient: PADMINI ROCHE HISTORY AND PHYSICAL Page 1 of 1 X Puma Matute APRN X HISTORY AND PHYSICAL
--- NOTE | ~2016-09-24 | ST ---
Unit #: [id number] #: [id number] Patient: PADMINI ROCHE [id number] [address] [place], [place] [address] [id number] I MR#: [id number] NAME: PADMINI ROCHE. : 1955 SEX: F STUDY DATE/TIME: 09/25/2016 UNIT: C5B ROOM: 552 STUDY DESCRIPTION: Lexiscan stress test Attending Physician: Kwesi Bey M.D. Primary Care Physician: Isabell Mathew Wong CARDIOLOGY REPORT PROCEDURE PERFORMED Lexiscan Cardiolite stress test. REPORT Baseline EKG - Normal sinus rhythm with ventricular rate 69 beats per minute, left atrial abnormality, poor R wave progression, nonspecific ST-T wave abnormalities in lead III. Lexiscan is a 4-minute test with Lexiscan being injected within the first minute, followed by Cardiolite. FINDINGS 1. EKG during the test showed some T wave inversions in lead III only and some nonspecific ST-T wave abnormalities in the lateral leads. 2. The patient had no complaints of chest pain, palpitations or dizziness. Had increased shortness of breath and fatigue, which resolved in recovery phase. 3. Maximum heart rate response was 95 beats per minute with a maximum blood pressure response of 154/77 mmHg. 4. Cardiolite was injected after Lexiscan within the first minute of the test. Radionuclide tests pending. Please correlate with nuclear images. Dictated by... Guero SuarezRAndra for Ghada Sparks TD: 09/25/2016 10:28 JOB #: [id number] Unit #: [id number] #: [id number] Patient: PADMINI ROCHE CARDIOLOGY REPORT Page 1 of 1 X Kenia Cloud APRN CARDIOLOGY REPORT
[~2016-09-24 09:24] MED LIST changes: -ALLER-FEX180 MG PO; -ANTIVERT PO; -ASPIRIN81 M2 PO; -DITROPAN XL PO; -DOC-Q-LACE100 MG PO; -GABAPENTIN300 MG PO; -HYDROXYZINE HCL25 M1 PO; -KCL PO; -LISINOPRIL PO; -MOBIC PO; -PATIENT'S PHARMACY; -PROTONIX PO; -VERAPAMIL ER180 M1 PO
[2016-09-24 10:04] LABS: POC - CKMB 1.7 ng/mL (0.0-7.9); POC - TROPONIN <0.05 ng/mL (<=0.05)
[2016-09-24 10:05] LABS: BASOPHIL# 0.1 X10e3 (0-0.3); BASOPHIL% 0.7 % (0-2.5); DIFF IND NO; EOSINOPHIL# 0.2 X10e3 (0-0.7); EOSINOPHIL% 2.2 % (0.0-7.0); HEMATOCRIT 33.4 % (35.0-45.0); HEMOGLOBIN 11.2 gm/dL (12.0-16.0); LYMPHOCYTE# 2.3 X10e3 (1.0-3.5); LYMPHOCYTE% 22.1 % (17.0-45.0); MEAN CELL VOLUME 86.6 FL (83-96); MEAN CORPUSCULAR HEMOGLOBIN 29.1 PG (28-34); MEAN CORPUSCULAR HGB CONC 33.5 g/dL (30-36); MEAN PLATELET VOLUME 8.7 FL (6.5-11.5); MONOCYTE# 0.4 X10e3 (0-1.0); MONOCYTE% 3.8 % (3.0-12.0); NEUTROPHIL# 7.4 X10e3 (1.5-7.1); NEUTROPHIL% 71.2 % (40-75); PLATELET COUNT 346 X10e3 (140-420); RED BLOOD COUNT 3.85 X10e (3.90-5.30); WHITE BLOOD COUNT 10.4 X10e3 (4.0-10.5)
[2016-09-24 10:19] LABS: PARTIAL THROMBOPLASTIN TIME 23.8 SECONDS (23.5-31.3); PROTHROMBIN TIME (PATIENT) 10.4 SECONDS (10.0-11.7)
[2016-09-24 10:34] LABS: ALBUMIN SERUM 3.9 g/dL (3.5-5.0); BILIRUBIN, DIRECT 0.1 mg/dL (0.0-0.2); BILIRUBIN,INDIRECT 0.2 mg/dL (0.0-0.9); BILIRUBIN,TOTAL 0.3 mg/dL (0.2-2.0); CALCIUM SERUM 9.7 mg/dL (8.4-10.2); GLOM FILT RATE Estimated 70.9 mL/min (>60); MAGNESIUM 1.5 mg/dL (1.6-3.0); POTASSIUM 3.6 mmol/L (3.5-5.1); PROTEIN TOTAL SERUM 7.5 g/dL (6.0-8.3)
[2016-09-24 11:34] LABS: POC - CKMB 1.6 ng/mL (0.0-7.9); POC - TROPONIN <0.05 ng/mL (<=0.05)
[2016-09-24] MEDS ORDERED: HYDROXYZINE HCL25 M1 PO (14:10)
[2016-09-24] MEDS ORDERED: PATIENT'S PHARMACY (14:10)
[2016-09-24] MEDS ORDERED: LIPITOR20 MG PO (14:11)
[2016-09-24] MEDS ORDERED: ANTIVERT PO (14:11)
[2016-09-24] MEDS ORDERED: LISINOPRIL PO (14:11)
[2016-09-24] MEDS ORDERED: DITROPAN XL PO (14:12)
[2016-09-24] MEDS ORDERED: ALLER-FEX180 MG PO (14:12)
[2016-09-24] MEDS ORDERED: DOC-Q-LACE100 MG PO (14:12)
[2016-09-24] MEDS ORDERED: METFORMIN PO (14:12)
[2016-09-24] MEDS ORDERED: HYDROCHLOROTHIA25 MG PO (14:12)
[2016-09-24] MEDS ORDERED: ASPIRIN81 M2 PO (14:12)
[2016-09-24] MEDS ORDERED: MOBIC PO (14:13)
[2016-09-24] MEDS ORDERED: TRADJENTA5 MG PO (14:13)
[2016-09-24] MEDS ORDERED: PROTONIX PO (14:13)
[2016-09-24] MEDS ORDERED: KCL PO (14:13)
[2016-09-24] MEDS ORDERED: VERAPAMIL ER180 M1 PO (14:13)
[2016-09-24 17:25] LABS: CK TOTAL 49 IU/L (26-140)
[2016-09-24] MEDS ORDERED: GABAPENTIN300 MG PO (18:47)
[2016-09-24] MEDS ORDERED: FLEXERIL10 MG PO (18:48)
[2016-09-24] MEDS ORDERED: CITALOPRAM HBR40 MG PO (18:49)
[2016-09-24] MEDS ORDERED: TRAZODONE HCL150 MG PO (18:49)
[2016-09-24 23:27] LABS: CK TOTAL 48 IU/L (26-140)
[2016-09-25 06:24] LABS: MAGNESIUM 1.5 mg/dL (1.6-3.0)
== END 2016-09-26 13:25 | disposition home or self-care (01) ==
LOC: CED 09:24 → C5B 15:30 → CED 18:25 → C5B 09-26 13:25
PROVIDERS: Emergency Medicine; Internal Medicine Cardiovascular Disease; Nurse Practitioner
DX: R07.9 Chest pain, unspecified (principal); R42 Dizziness and giddiness; I10 Essential (primary) hypertension; E78.5 Hyperlipidemia, unspecified; E66.9 Obesity, unspecified; E11.9 Type 2 diabetes mellitus without complications; M19.90 Unspecified osteoarthritis, unspecified site; G40.909 Epilepsy, unspecified, not intractable, without status epilepticus; Z68.41 Body mass index [BMI] 40.0-44.9, adult; Z79.82 Long term (current) use of aspirin; Z79.84 Long term (current) use of oral hypoglycemic drugs; Z79.899 Other long term (current) drug therapy; Z90.710 Acquired absence of both cervix and uterus; Z98.51 Tubal ligation status; Z95.818 Presence of other cardiac implants and grafts; Z98.890 Other specified postprocedural states; Z88.0 Allergy status to penicillin; Z88.2 Allergy status to sulfonamides; Z88.5 Allergy status to narcotic agent; Z88.8 Allergy status to other drugs, medicaments and biological substances
CPT/HCPCS: 36415; 70544; 70547; 70551; 71010; 71275; 78452; 80048; 80061; 80076; 82550; 82553; 82947; 83735; 84443; 84484; 85025; 85379; 85610; 85730; 93005; 93017; 93970; 99285; A9500; G0378; J0360; J1650; J1815; J2785; J3475; Q9967